=== PATIENT | male | born 1975 | race Two or more races ===

== ENCOUNTER 2020-02-17 09:50 | Outpatient (CLI) | payer OTHER | END 2020-02-17 09:53 | disposition home or self-care (01) | LOC: RAD 09:50 | PROVIDERS: ATTEND General Practice | DX: Z11.1 Encounter for screening for respiratory tuberculosis (principal) ==

== ENCOUNTER 2020-11-01 13:57 | Outpatient (CLI) | payer OTHER | END 2020-11-01 14:03 | disposition home or self-care (01) | LOC: RAD 13:57 | PROVIDERS: ATTEND General Practice | DX: Z11.1 Encounter for screening for respiratory tuberculosis (principal) ==